=== PATIENT | female | born 1965 ===

== ENCOUNTER 2023-02-10 09:53 | Outpatient (CLI) | payer OTHER | END 2023-02-10 10:04 | disposition home or self-care (01) | LOC: RX STUDY 09:53 | DX: K76.0 Fatty (change of) liver, not elsewhere classified (principal); R13.14 Dysphagia, pharyngoesophageal phase; M54.2 Cervicalgia; J45.20 Mild intermittent asthma, uncomplicated; E03.9 Hypothyroidism, unspecified; E78.2 Mixed hyperlipidemia; E11.69 Type 2 diabetes mellitus with other specified complication ==